=== PATIENT | female | born 1965 | race Caucasian/White ===

== ENCOUNTER 2023-04-09 15:45 | Outpatient (RCR) | payer BC | END 2023-04-12 | disposition home or self-care (01) | LOC: WSPT | DX: M75.01 Adhesive capsulitis of right shoulder (principal); M75.02 Adhesive capsulitis of left shoulder ==

== ENCOUNTER 2023-04-16 15:38 | Outpatient (RCR) | payer BC | END 2023-04-16 17:00 | disposition home or self-care (01) | LOC: WSPT 15:38 | DX: M75.01 Adhesive capsulitis of right shoulder (principal); M75.02 Adhesive capsulitis of left shoulder ==

== ENCOUNTER 2023-11-30 13:19 | Observation (INO) | payer OTHER ==
[~2023-11-30] VITALS: Ht 157.5 cm; Wt 78.3 kg
[2023-11-30 13:40] LABS: BASO # 0.1 K/mm3 (0.0-0.2); EOS # 0.2 K/mm3 (0.0-0.7); EOS % 3.7 % (0.0-4.0); GRAN # 2.5 K/mm3 (1.4-6.5); GRAN % 49.1 % (42.2-75.2); HEMATOCRIT 42.2 % (37.0-47.0); HEMOGLOBIN 13.9 g/dl (12.5-16.0); MEAN CELL VOLUME 92 fl (80.0-100.0); MEAN CORPUSCULAR HEMOGLOBIN 30 pg (27-31); MEAN CORPUSCULAR HGB CONC 33 g/dl (33.0-37.0); MEAN PLATELET VOLUME 9.9 fl (7.4-10.4); MONO # 0.4 K/mm3 (0.1-0.6); MONO % 7.8 % (1.7-9.3); PLATELET COUNT 141 K/mm3 (130-400); REDCELL DISTRIBUTION WIDTH-CV 12.7 % (11.5-14.5)
[2023-11-30 13:58] LABS: ALANINE AMINOTRANSFERASE 60 U/L (0-55); ALKALINE PHOSPHATASE 49 U/L (40-150); ANION GAP 10 mmol/L (7-16); AST,SGOT 49 U/L (5-34); BILIRUBIN,TOTAL 0.8 mg/dL (0.2-1.2); BLOOD UREA NITROGEN 11 mg/dL (10-20); CALCIUM 9.4 mg/dL (8.4-10.2); CHLORIDE 106 mEq/L (98-107); CREATININE, serum 0.83 mg/dL (0.57-1.11); GLUCOSE 155 mg/dL (70-99); POTASSIUM 3.4 mEq/L (3.5-4.5); SODIUM 140 mEq/L (136-145); TOTAL PROTEIN 6.2 g/dl (6.2-8.1)
[2023-11-30 14:16] LABS: TROPONIN-I < 0.010 ng/mL (0.00-0.033)
[2023-11-30] MEDS ORDERED: Ondansetron 4 MG/2 ML VIAL IV PRN (15:30)
[2023-11-30] MEDS ORDERED: Acetaminophen 500 MG TAB PO PRN (15:30)
--- NOTE | 2023-11-30 15:51 | NUR ---
REPORT RECEIVED FROM ED RN
[2023-11-30 16:05] VITALS: BP 141/84; PULSE 63; TEMP 97.8
[2023-11-30 16:23] VITALS: BP_SYST 141
--- NOTE | 2023-11-30 16:50 | NUR ---
PT CALLED AND REPORTS EPIGASTRIC PAIN STATING THAT IT IS SIMILAR TO PAIN FELT THIS MORNING BEFORE ADMISSION. THIS NURSE UPDATED DR MORGAN AND NOTIFIED THAT NO NITRO ON JUN AT THIS TIME. HEAD OF BED ELEVATED AND PT REPORTS IMPROVED PAIN.
[2023-11-30] MEDS ORDERED: ZETIA 10MG TAB10 MG PO (16:53)
[2023-11-30] MEDS ORDERED: COLCRYS0.6 MG PO (16:53)
[2023-11-30] MEDS ORDERED: EUTHYROX150 MCG PO (16:54)
[2023-11-30] MEDS ORDERED: ULTRAM 50MG TAB50 MG PO (16:55)
[2023-11-30] MEDS ORDERED: VOLTAREN GEL 1%1 TU TP (16:56)
[2023-11-30] MEDS ORDERED: ASPIRIN E.C. 8181 MG PO (16:56)
[2023-11-30] MEDS ORDERED: Mag/Al Hydrox/Simeth Susp 30 ML CUP PO ONE (17:00)
--- NOTE | 2023-11-30 17:08 | NUR ---
MED REC DONE
--- NOTE | 2023-11-30 18:06 | NUR ---
PT DENIES PAIN AT THIS TIME AFTER MAALOX DOSE
--- NOTE | 2023-11-30 19:16 | NUR ---
REPORT GIVEN TO ANIKET, EN
[2023-11-30 20:00] VITALS: BP 139/78; PULSE 65; TEMP 98.2
--- NOTE | 2023-11-30 20:30 | NUR ---
UPON SHIFT ASSESSMENT, PATIENT WAS AXOX4 AND AWAKE IN BED WITH VISITOR BEDSIDE. PATIENT VS ARE WNL AND TELE IS NS AT 64 BPM. PATIENT DENIES CHEST PAIN BUT C/O EPIGASTRIC PAIN AND NAUSEA. PRN ZOFRAN GIVEN. BOWEL SOUNDS HYPOACTIVE IN LOWER QUADRANTS, ABDOMEN SOFT AND PALPATION DOES NOT ELICIT PAIN. PATIENT STATES NO OTHER NEEDS AT THIS TIME. CALL LIGHT WITHIN REACH.
[2023-11-30 21:00] VITALS: BP_SYST 139
--- NOTE | 2023-11-30 22:30 | NUR ---
PATIENT REFUSED LOVENOX INJ SUBCUTANEOUS.
--- NOTE | 2023-11-30 23:30 | NUR ---
PATIENT CONTINUES TO DENY CHEST PAIN. RESTING IN BED ON LEFT SIDE. TELE REMAINS NS.
[2023-12-01] VITALS (13 sets, daily range): BP systolic 120–149; BP diastolic 72–85; PULSE 60–106; TEMP 97.8–98.2
--- NOTE | 2023-12-01 06:20 | NUR ---
PATIENT HAD NO EMERGENT STATUS CHANGES THROUGHOUT THE NIGHT, VS ARE WNL AND TELE IS NS AT 62 BPM. REPEAT TROPONINS ARE NEGATIVE. CALL LIGHT WITHIN REACH.
[2023-12-01 06:34] LABS: BASO % 0.7 % (0.0-2.0); EOS # 0.3 K/mm3 (0.0-0.7); GRAN # 2.2 K/mm3 (1.4-6.5); HEMATOCRIT 42.9 % (37.0-47.0); HEMOGLOBIN 14.6 g/dl (12.5-16.0); LYMPH # 1.5 K/mm3 (1.2-3.4); LYMPH % 33.3 % (20.0-51.0); MEAN CELL VOLUME 90 fl (80.0-100.0); MEAN CORPUSCULAR HEMOGLOBIN 31 pg (27-31); MEAN CORPUSCULAR HGB CONC 34 g/dl (33.0-37.0); MEAN PLATELET VOLUME 10.2 fl (7.4-10.4); MONO # 0.5 K/mm3 (0.1-0.6); MONO % 11.8 % (1.7-9.3); PLATELET COUNT 148 K/mm3 (130-400); RED BLOOD COUNT 4.79 M/mm3 (4.10-5.30); REDCELL DISTRIBUTION WIDTH-CV 12.6 % (11.5-14.5)
[2023-12-01 07:05] LABS: CALCIUM 9.2 mg/dL (8.4-10.2); CREATININE, serum 0.73 mg/dL (0.57-1.11); POTASSIUM 4.4 mEq/L (3.5-4.5)
[2023-12-01 07:06] LABS: CHOLESTEROL RISK RATIO 0.3
--- NOTE | 2023-12-01 08:15 | NUR ---
Assessment complete. Pt a/o x4. Denies pain or nausea. NPO for Melony Scan this morning.
--- NOTE | 2023-12-01 08:35 | NUR ---
Patient to [facility] via wheelchair.
[2023-12-01] MEDS ORDERED: Regadenoson 0.08 MG/ML 5 ML SYRINGE IV SCH (09:07)
--- NOTE | 2023-12-01 10:15 | NUR ---
Patient returned from [facility]. Demi at bedside completing Echocardiogram at this time.
--- NOTE | 2023-12-01 10:41 | NUR ---
freezing room worker met with pt to discuss discharge planning. She reports to live with her niece in [place]. She sees Dr. Asencio for PCP needs and obtains medications from [facility] with no difficulties. She reports to have [employer] at works at [employer]. She states her son, Juan F [phone] is her NOK as her is a resident at [facility] and is unable to make decisions. She declined to complete a DPOA-HC. She is independent with [facility] and uses no DME. Discharge Plan: home
[2023-12-01] MEDS ORDERED: PROTONIX 40MG T40 MG PO (11:48)
--- NOTE | 2023-12-01 14:07 | NUR ---
Discharge instructions reveiwed with patient- verbalizes understanding. INT and tele d/c'd. Pt escorted to private vehicle and discharged home with sister.
== END 2023-12-01 14:07 | disposition home or self-care (01) ==
LOC: COL.ER 13:19 → MEDICAL 15:06
PROVIDERS: Nurse Practitioner; ADMIT Internal Medicine
DX: R07.9 Chest pain, unspecified (principal); E87.6 Hypokalemia; E06.3 Autoimmune thyroiditis; E78.5 Hyperlipidemia, unspecified; M06.9 Rheumatoid arthritis, unspecified; M10.9 Gout, unspecified; K21.9 Gastro-esophageal reflux disease without esophagitis; F17.210 Nicotine dependence, cigarettes, uncomplicated; Z79.899 Other long term (current) drug therapy; Z79.890 Hormone replacement therapy; Z79.82 Long term (current) use of aspirin
CPT/HCPCS: A9500-JZ; G0378; J2405; J2785